=== PATIENT | male | born 1960 | race Caucasian/White ===

== ENCOUNTER 2017-12-02 11:44 | Day surgery (SDC) | payer OTHER ==
[2017-12-02] MEDS ORDERED: DIAZEPAM 5 MG TAB PO ONE (11:48)
[2017-12-02] MEDS ORDERED: diphenhydrAMINE 25 MG CAP PO ONE (11:48)
[2017-12-02] MEDS ORDERED: ASPIRIN EC 325 MG TAB PO ONE (11:48)
[2017-12-02] MEDS ORDERED: FAMOTIDINE 20 MG TAB PO ONE (11:48)
[2017-12-02] MEDS ORDERED: NS 1,000 ML IV ONE (11:48)
--- NOTE | 2017-12-02 12:28 | CPEKG ---
Heart Rate: 49 RR Interval: 1224 P-R Interval: 152 QRSD Interval: 92 QT Interval: 436 QTC Interval: 394 P Sheldahl: 60 QRS Sheldahl: 6 T Wave Sheldahl: 82 EKG Severity - ABNORMAL ECG - EKG Impression: SINUS BRADYCARDIA EKG Impression: ABNRM R PROG, CONSIDER ASMI OR LEAD PLACEMENT Electronically Signed By: Luther Ryan 04-Dec-2017 21:52:01
[2017-12-02 13:08] LABS: PLATELET COUNT 240 10^3/uL (150-400)
[2017-12-02 13:25] LABS: PROTIME(PATIENT) 13.4 SEC (12.0-15.0)
[2017-12-02] MEDS ORDERED: LIDOCAINE 1% 300 MG/30 ML SDV ONE ×2 (14:02→14:50)
[2017-12-02] MEDS ORDERED: MIDAZOLAM 2 MG/2 ML VIAL ONE ×2 (14:03→15:47)
[2017-12-02] MEDS ORDERED: fentaNYL 100 MCG/2 ML INJ ONE ×2 (14:03→15:47)
[2017-12-02] MEDS ORDERED: IOPAMIDOL (ISOVUE 370) 100 ML BTL IV ONE (14:04)
--- NOTE | 2017-12-02 15:11 | PDGENHP ---
History & Physical Chief Complaint: NSVT History of Present Illness: Evin is a 57-year-old male with a history of coronary artery disease s/p 6 stents, ischemic cardiomyopathy, hyperlipidemia, and syncope. Evin wore a Holter monitor after a syncopal episode during exercise. His Holter monitor revealed 30 pauses greater than 2 seconds. He wore a 30 day event monitor that showed an 11 beat run of NSVT. He was asymptomatic at that time. We plan to do a heart catheterization today. If there is not a significant change compared to his previous angiograms, then he likely has a rhythm disturbance that may require a defibrillator or a formal EP study. Pertinent Past, Social, Family History: Coronary artery disease s/p stents x6, Ischemic cardiomyopathy, Hyperlipidemia, Syncope Relevant Physical Exam: Constitutional: Alert, well nourished, in no apparent distress. Eye: EOMI, conjunctivae normal, sclerae white. Respiratory: Breathing is unlabored, equal breath sounds bilaterally. Cardiovascular: Regular rate and rhythm, no pedal edema. Abdomen: Bowel sounds present. Musculoskeletal: Normal ROM, no deformity or tenderness. Neurological: Alert and oriented x3, normal gait. Psychiatric: Mood and affect normal
[2017-12-02] MEDS ORDERED: VERAPAMIL 5 MG/2 ML VIAL ONE (15:12)
[2017-12-02] MEDS ORDERED: HEPARIN 10,000 UNIT/10 ML MDV (1,000 UNIT/ML) ONE (15:12)
--- NOTE | 2017-12-02 15:31 | PDPROPOC ---
Sedation Plan of Care Sedation Plan of Care: vital signs stable, mental status noted, patient educated of risks, benefits, alternatives, patient can tolerate sedation ASA Classification: ASA 3 Planned drugs: fentanyl, midazolam Mallampati Score: Class 3 Mallampati Reference Image: Patient passed 3-3-2 rule?: Yes
--- NOTE | 2017-12-02 15:53 | PDDXCAT ---
Diagnostic Cath Note - . Date: 12/02/17 Low Voltage Electrician: Montserrat Indication: other (NSVT, history of CAD s/p 6 stents, ischemic cardiomyopathy) - Procedure Access: left wrist Procedure: left heart catheterization, coronary angiography, left ventriculogram - Materials Left Heart Cath size: 5F Left Heart Cath materials: standard multipack (JL4, JR4, pigtail) - Findings-Left Heart Catheterization LM: The LM is 8mm in size. It birfurcates into an LAD and circumflex system. LAD: There is an LAD bifurcation of stents. LCX: The circumflex is widely patent. It is a 4mm vessel. MARGARITA III flow. There are 2 obtuse marginals, the first of which has been previously stented and has 10% restenosis. RCA: The RCA is 3.25 mm in size and dominant. There is a 50% ostial stenosis at the takeoff of the PDA from the RCA. The PDA has been prevously stented and is widely patent. EDP: The LVEDP is 25mmHg. LVEF: The EF is decreased at 35%. 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 His ejection fraction is decreased at 35% and is lower during catheter and injection related PVC's. Complications: NONE. Estimated blood loss: <50ml Closure method: TR Band Assessment: The patient has severe [place] vessel coronary disease with multiple stents as previously noted. The stents are widely patent. There is 10% instent restenosis in the LAD. There is no evidence of flow limiting obstruction or vessels that would benefit from stenting of bypass surgery. The pt has an ischemic cardiomyopathy with EF of 35-40% and distal anterior wall and apical aneurysm. An echo performed today in the office showed EF of 50% but the entire apex is not well visualized. The patient definitely has NSVT and an ischemic cardiomyopathy. Plan: The patient needs a MUGA study to evaluate the ejection fraction. Consultation with the EP service to consider EP study and possible ablation of NSVT. If the EF by MUGA is less than 35%, it may be reasonable to consider a prophylactic AICD implantation, reserving EP study for an ablation for recurrent AICD shock. Intervention: NONE. Patient Problems: Problems Problem Status Onset CAD (coronary artery disease) Acute Hyperlipidemia Acute
[2017-12-02] MEDS ORDERED: NITROGLYCERIN 0.4 MG BTL SL PRN (16:30)
[2017-12-02] MEDS ORDERED: OXYCODONE/APAP 5/325 TAB PO PRN (16:30)
[2017-12-02] MEDS ORDERED: ATROPINE SULFATE 1 MG/10 ML SYR IVP PRN (16:30)
[2017-12-02] MEDS ORDERED: ONDANSETRON 4 MG/2 ML VIAL IVP PRN (16:30)
[2017-12-02] MEDS ORDERED: HYDROCODONE/APAP 5/325 TAB PO PRN (16:30)
== END 2017-12-02 18:56 | disposition home or self-care (01) ==
LOC: FCATH 11:44
PROVIDERS: ATTEND Internal Medicine Cardiovascular Disease
DX: I25.10 Atherosclerotic heart disease of native coronary artery without angina pectoris (principal); I25.5 Ischemic cardiomyopathy; Z95.5 Presence of coronary angioplasty implant and graft
CPT/HCPCS: J1644; J2250; J3010; Q9967